=== PATIENT | female | born 1980 ===

== ENCOUNTER 2023-06-16 21:46 | Emergency (ER) | payer OTHER, SELFPAY ==
[2023-06-16 22:04] VITALS: BP 179/115; PULSE 69; RESP 18; TEMP 36.9; O2SAT 97; BMI 25.6
[2023-06-16 22:21] LABS: MANUAL DIFF FLAG NO
[2023-06-16 22:22] LABS: Basophils Percent Auto 0.2 % (0-2); Eosinophils Percent Auto 0.1 % (0-4); Hemoglobin 14.3 g/dl (12.0-16.0); Imm Gran Abs Auto 0.03 X10*3/uL (0.00-0.03); Imm Gran Pct Auto 0.3 % (0.0-0.4); Lymphocytes Absolute Auto 1.6 X10*3/uL (1.2-4.9); Mean Corpuscular Hemoglobin 30.2 pg (27.0-33.0); Mean Corpuscular Volume 88.8 fL (80.0-98.0); Monocytes Absolute Auto 1.1 X10*3/uL (0.1-1.2); Monocytes Percent Auto 9.1 % (2-11); Neutrophils Absolute Auto 8.9 x10*3/uL (2.0-8.3); Neutrophils Percent Auto 76.3 % (45-73); Platelet Count 306 X10*3/uL (160-400); Red Blood Count 4.73 X10*6/uL (4.20-5.50); Red Cell Distribution Width 13.1 % (11.0-16.0); White Blood Count 11.6 X10*3/uL (4.8-10.8)
[2023-06-16 22:38] LABS: Alanine Aminotransferase 10 U/L (0-31); Albumin Level 4.3 g/dL (3.5-5.0); Alkaline Phosphatase 75 U/L (39-117); Anion Gap 14 (12-20); Aspartate Amino Transferase 16 U/L (5-31); Bilirubin Total 0.4 mg/dL (0.0-1.0); Blood Urea Nitrogen 11 mg/dL (9-16); Calcium 9.3 mg/dL (8.4-10.2); Carbon Dioxide 24 mmol/L (22-29); Chloride 104 mmol/L (96-108); Creatinine Clr Calc Pharmacy 84.5; Estimated Glomerular Filt Rate > 60; Glucose Random 120 mg/dL (60-115); Lipase 7 U/L (8-78); Potassium 3.2 mmol/L (3.3-5.1); Sodium 139 mmol/L (135-145); Total Protein 7.5 g/dL (6.5-8.0)
[2023-06-16 23:01] LABS: Influenza A PCR NEGATIVE (Negative); Influenza B PCR NEGATIVE (Negative); Resp Syncy Virus RNA Qual PCR NEGATIVE (Negative); SARS COV2 PCR INHOUSE NEGATIVE (Negative)
--- NOTE | 2023-06-16 23:50 | ED.GENADULT ---
HPI - General Adult General Chief complaint: Nausea/Vomiting/Diarrhea Stated complaint: vomiting Time Seen by Provider: 06/16/23 23:11 Source: patient, RN notes reviewed and old records reviewed Mode of arrival: ambulatory Limitations: no limitations History of Present Illness HPI narrative: 43-year-old female presents for evaluation of upper abdominal pain, nausea vomiting. She reports her symptoms started Saturday night. She reports that on Saturday she had 2 large alcoholic beverages and was eating from a new [employer] restaurant She reports that she has been vomiting with upper abdominal pain ever since. She states that she has never been officially diagnosed with GERD She does feel that she has heartburn symptoms frequently after eating She currently describes an upper abdominal burning pain Denies any history abdominal surgeries No other complaints or concerns at this time Related Data Previous Rx's Medication Instructions Recorded omeprazole 20 mg capsule,delayed 20 mg PO DAILY #14 caps 06/16/23 release ondansetron 4 mg disintegrating 4 mg PO Q8H PRN nausea and 06/16/23 tablet vomiting #20 tabs Allergies Allergy/AdvReac Type Severity Reaction Status Date / Time morphine AdvReac Hives Verified 06/17/23 00:18 Review of Systems Constitutional: Constitutional: Denies chills, Denies fatigue and Denies headache(s) ENT: Denies headache(s) Cardiovascular: Cardiovascular: Denies chest pain and Denies dyspnea Respiratory: Respiratory: Denies cough and Denies dyspnea Gastrointestinal: Gastrointestinal: Reports abdominal pain, Denies constipation, Reports nausea and Reports vomiting Genitourinary: Genitourinary: Denies dysuria Musculoskeletal: Musculoskeletal: Denies back pain Neurologic: Denies headache(s) and Denies focal weakness Endocrine: Endocrine: Denies fatigue PMFSH Social History Social History Alcohol intake: current Alcohol intake frequency: holidays/special occasions only Alcohol type: hard liquor Smoked in Last 30 Days: No Use of substances other than those prescribed or required for medical reasons: Yes Substance Use Type: Marijuana Substance Use Frequency: Daily Advance Directives: No Advance Directives Information Provided: No Patient : No Physical Exam ED Vital Signs: Vital Signs - 24 hr 06/16/23 22:04 06/17/23 00:00 Temperature 98.5 F 98.2 F Pulse Rate 69 65 Respiratory Rate 18 16 Blood Pressure 179/115 H 175/95 H Pulse Oximetry 97 96 Oxygen Delivery Method Room Air Room Air BMI result Body Mass Index 25.6 Const General: healthy appearing, comfortable, no acute distress, alert and awake Nutritional Appearance: well nourished Orientation/consciousness: patient oriented x3 HENMT Head: Yes normocephalic and Yes atraumatic Throat: Yes posterior oropharynx normal Eyes Eyelids: Yes eyelids normal Conjunctivae: conjunctivae normal Sclerae: sclerae normal Corneas: corneas normal Pupils: Equal, round and reactive pupils present EOM: EOMs intact bilaterally Neck Neck: Yes full ROM Resp Effort & Inspection: normal respiratory effort, able to speak in complete sentences and not labored GI Inspection: No distended Palpation (GI): Soft to palpation, not firm, Tenderness to palpation present (GI) in the epigastrum and in the LUQ, no guarding and not rigid Auscultation: normoactive bowel sounds Skin General skin exam: no rashes or lesions noted and elasticity normal Neuro General: patient oriented x3 Cranial nerves: Yes CN's II-XII intact bilaterally, Yes Equal, round and reactive pupils present and Yes Bilaterally intact EOM present Cognition (Neuro): normal cognition Extrem Other: Moving all extremities well without any obvious deformities Medications Administered Discontinued Medications Generic Name Dose Route Start Last Admin Trade Name Freq PRN Reason Stop Dose Admin Sodium Chloride 1,000 mls @ 999 mls/hr 06/16/23 23:30 06/17/23 00:11 Ns IV 06/17/23 00:30 999 mls/hr .Q1H1M BHUMI Administration Lidocaine/Diphenhydr/Alum/Mg/Simeth 10 ml 06/16/23 23:26 06/17/23 00:10 Mag&Al/Sim/Diphenhyd/Lidocaine 10 Ml Oral.Susp PO 06/16/23 23:27 10 ml ONCE ONE Administration Protocol Ondansetron HCl 4 mg 06/16/23 23:26 06/17/23 00:10 Ondansetron Hcl 4 Mg/2 Ml Vial IVPUSH 06/16/23 23:27 4 mg ONCE ONE Administration Pantoprazole Sodium 40 mg 06/16/23 23:26 06/17/23 00:10 Pantoprazole Sodium 40 Mg/10 Ml Vial IVPUSH 06/16/23 23:27 40 mg ONCE ONE Administration Medical Decision Making Medical Decision Making MDM Narrative: 43-year-old female presents for evaluation of upper abdominal pain and vomiting. She is tender in the epigastric region, not the right upper quadrant, less likely for biliary disease. Her workup is largely unremarkable exception of a very mild hypokalemia of 3.2 likely related to her vomiting. She does not have a surgical abdomen on exam. We will treat with IV fluids, Protonix and magic mouthwash Differential Diagnosis Gastritis Gastroenteritis Peptic ulcer disease Upper abdominal pain Biliary disease Cholelithiasis Lab Data MDM Lab Attestation statement: I reviewed the patient's lab results. Mild leukocytosis 11.6 likely reactive vomiting. Hemoglobin hematocrit within normal limits. Sodium normal at 139, potassium slightly low at 3.2. Chloride and CO2 within normal limits, renal function within normal limits. 06/16/23 22:16 06/16/23 22:16 Labs: Lab Results 06/16/23 06/16/23 06/16/23 Range/Units 22:16 22:16 22:16 WBC 11.6 H (4.8-10.8) X10*3/uL RBC 4.73 (4.20-5.50) X10*6/uL Hgb 14.3 (12.0-16.0) g/dl Hct 42.0 (37.0-47.0) % MCV 88.8 (80.0-98.0) fL MCH 30.2 (27.0-33.0) pg MCHC 34.0 (31.0-35.0) g/dl RDW 13.1 (11.0-16.0) % Plt Count 306 (160-400) X10*3/uL MPV 9.0 L (9.4-12.3) fL Immature Gran % (Auto) 0.3 (0.0-0.4) % Neut % (Auto) 76.3 H (45-73) % Lymph % (Auto) 14.0 L (20-40) % [place] % (Auto) 9.1 (2-11) % Eos % (Auto) 0.1 (0-4) % Baso % (Auto) 0.2 (0-2) % Lymph # (Auto) 1.6 (1.2-4.9) X10*3/uL [place] # (Auto) 1.1 (0.1-1.2) X10*3/uL Eos # (Auto) 0.0 (0.0-0.4) X10*3/uL Baso # (Auto) 0.0 (0.0-0.2) X10*3/uL Abs Immat Gran (auto) 0.03 (0.00-0.03) X10*3/uL Absolute Neuts (auto) 8.9 H (2.0-8.3) x10*3/uL Absolute Nucleated RBC 0.000 (0.0-0.012) X10*3/uL Nucleated RBC % (auto) 0.0 (0.0-0.2) /100WBC Sodium 139 (135-145) mmol/L Potassium 3.2 L (3.3-5.1) mmol/L Chloride 104 (96-108) mmol/L Carbon Dioxide 24 (22-29) mmol/L Anion Gap 14 (12-20) BUN 11 (9-16) mg/dL Creatinine 0.67 (0.5-1.4) mg/dL Estim Creat Clear Calc 84.5 Estimated GFR > 60 Random Glucose 120 H (60-115) mg/dL Calcium 9.3 (8.4-10.2) mg/dL Total Bilirubin 0.4 (0.0-1.0) mg/dL AST 16 (5-31) U/L ALT 10 (0-31) U/L Alkaline Phosphatase 75 (39-117) U/L Total Protein 7.5 (6.5-8.0) g/dL Albumin 4.3 (3.5-5.0) g/dL Lipase 7 L (8-78) U/L Influenza Type A (PCR) NEGATIVE (Negative) Influenza Type B (PCR) NEGATIVE (Negative) RSV RNA Qual (PCR) NEGATIVE (Negative) SARS-CoV-2 RNA (RT-PCR) NEGATIVE (Negative) Discharge Plan Discharge Clinical Impression: Acute upper abdominal pain Instructions: Gastroesophageal Reflux Disease (ED) Additional Instructions: Your workup in the emergency department today was reassuring. Your potassium was very slightly low This is likely due to the vomiting. You may treat this with potassium rich foods such as bananas and citrus Use Zofran as needed for nausea and vomiting Use omeprazole daily for the next 2 weeks to help with heartburn symptoms Follow-up with your primary doctor, you may benefit from a referral to a GI specialist Prescriptions: New ondansetron 4 mg tablet,disintegrating 4 mg PO Q8H PRN (Reason: nausea and vomiting) Qty: 20 0RF omeprazole 20 mg capsule,delayed release(DR/EC) 20 mg PO DAILY Qty: 14 0RF
[2023-06-17] VITALS: BP 175/95; PULSE 65; RESP 16; TEMP 36.8; O2SAT 96
[2023-06-17] MEDS: Mag&Al/Sim/Diphenhyd/Lidocaine 10 ML ORAL.SUSP PO (00:10)
[2023-06-17] MEDS: ondansetron HCL 4 MG/2 ML VIAL IVPUSH (00:10)
[2023-06-17] MEDS: Pantoprazole Sodium 40 MG/10 ML VIAL IVPUSH (00:10)
[2023-06-17] MEDS: 0.9 % Sodium Chloride 1,000 ML 999 ML IV (00:11)
== END 2023-06-17 02:17 | disposition home or self-care (01) ==
PROVIDERS: Emergency Provider Emergency Medicine
DX: R10.10 Upper abdominal pain, unspecified (principal); Z20.822 Contact with and (suspected) exposure to COVID-19; Z20.828 Contact with and (suspected) exposure to other viral communicable diseases; F12.90 Cannabis use, unspecified, uncomplicated
CPT/HCPCS: 0241U; 80053; 83690; 85025; 96374; 96375; 99284; 99285; J2405